=== PATIENT | female | born 1985 | race Hispanic/Latino ===

== ENCOUNTER 2021-10-10 22:26 | Emergency (ER) | payer MEDICAID, OTHER ==
[~2021-10-10] VITALS: Ht 144.8 cm; Wt 68.0 kg
[~2021-10-10 22:26] MED LIST: IRON-21 PO; PNV91TAB3 PO
[2021-10-11] VITALS: BP 124/82
== END 2021-10-11 00:13 | disposition home or self-care (01) ==
LOC: EDH 22:26
DX: S13.4XXA Sprain of ligaments of cervical spine, initial encounter (principal); V49.49XA Driver injured in collision with other motor vehicles in traffic accident, initial encounter; Y93.89 Activity, other specified; Y92.413 State road as the place of occurrence of the external cause; Y99.8 Other external cause status
CPT/HCPCS: 72040

== ENCOUNTER 2022-03-19 19:45 | Emergency (ER) | payer OTHER ==
[~2022-03-19] VITALS: Ht 149.9 cm; Wt 68.0 kg
[2022-03-19] MEDS ORDERED: CYCL-309 PO (21:32)
[2022-03-19] MEDS ORDERED: IBUP-1493 PO (21:32)
[2022-03-19 21:44] VITALS: BP 136/72
== END 2022-03-19 21:57 | disposition home or self-care (01) ==
LOC: EDH 19:45
DX: S13.4XXA Sprain of ligaments of cervical spine, initial encounter (principal); V49.59XA Passenger injured in collision with other motor vehicles in traffic accident, initial encounter; Y93.89 Activity, other specified; Y92.413 State road as the place of occurrence of the external cause; Y99.8 Other external cause status
CPT/HCPCS: 70450; 72125; 81025